=== PATIENT | male | born 1955 | race Caucasian/White ===

== ENCOUNTER 2019-12-01 11:55 | Inpatient (IN) ==
[2019-12-01] MEDS ORDERED: ATROPINE SULFATE PFS IVP PRN (12:09)
[2019-12-01] MEDS ORDERED: DEXTROSE 5%-1/2NS IV SOLUTION 1,000 ML IV STA (12:09)
[2019-12-01] MEDS ORDERED: TYLENOL PO PRN (12:09)
[2019-12-01] MEDS ORDERED: NITROSTAT SL PRN (12:09)
[2019-12-01] MEDS ORDERED: VISTARIL INJ IM PRN (12:09)
[2019-12-01] MEDS ORDERED: HUMULIN R 100 UNIT in SODIUM CHLORIDE 99 ML IV SCH (12:15)
[2019-12-01 12:28] VITALS: BMI 21.4
[2019-12-01 12:43] LABS: HEMATOCRIT 40.1 % (42.0-52.0)
[2019-12-01] MEDS ORDERED: DEXTROSE 5%-1/2NS IV SOLUTION 1,000 ML IV SCH (13:00)
[2019-12-01] MEDS ORDERED: HUMULIN R SUBCUT STA (13:47)
[2019-12-01] MEDS: D5%-1/2NS-KCL 40 MEQ/L IV SOL 1,000 ML IV SCH ×2 (14:00→22:04)
[2019-12-01] MEDS: ASPIRIN EC PO SCH (14:01)
[2019-12-01] MEDS: K-DUR PO SCH ×6 (14:01→23:51)
--- NOTE | 2019-12-01 14:51 | DI ---
EXAM: Chest two views HISTORY: Acute bronchitis FINDINGS: No comparison. Heart size is within normal limits. The less than optimal inspiration hanley its the exam. Cannot exclude mild/early pneumonia in the lower aspect of the right upper lobe. Ther e are a few nodular densities in the lateral left lung base which are indeterminate measuring approxi mately 15 mm largest. There is no vascular congestion, pneumothorax or pleural fluid. IMPRESSION: 1. Probable right upper lobe pneumonia. 2. Indeterminate nodular densities lateral left lung base for which follow-up full inspiration two-v iew chest radiography is recommended for clarification. CT correlation may be indicated at that time according to results.
[2019-12-01] MEDS: COZAAR PO SCH (16:49)
[2019-12-01] MEDS: ROCEPHIN 1 GM/50 ML D5W 1 GM/50 ML BAG IV SCH (16:49)
[2019-12-01] MEDS: ZITHROMAX PO SCH (16:50)
[2019-12-01] MEDS: HUMULIN R SUBCUT PRN ×4 (17:54→23:55)
[2019-12-02] MEDS: K-DUR PO SCH ×6 (01:55→12:02)
[2019-12-02] MEDS: HUMULIN R SUBCUT PRN ×3 (02:01→15:05)
[2019-12-02 05:26] LABS: HEMATOCRIT 35.3 % (42.0-52.0)
[2019-12-02] MEDS: D5%-1/2NS-KCL 40 MEQ/L IV SOL 1,000 ML IV SCH ×4 (05:30→14:56)
[2019-12-02] MEDS: ZITHROMAX PO SCH (09:29)
[2019-12-02] MEDS: COZAAR PO SCH (09:29)
[2019-12-02] MEDS: ASPIRIN EC PO SCH (09:30)
[2019-12-02] MEDS: ROCEPHIN 1 GM/50 ML D5W 1 GM/50 ML BAG IV SCH (09:30)
--- NOTE | 2019-12-02 09:35 | PCM.PROG ---
Attending Provider: ATTENDING PROVIDER: Dr. MAT DUMONT This patient is seen with Aylin Cassidy, Nurse Practitioner. DATE OF SERVICE: 12/02/19 SUBJECTIVE: This 64 year old /WHITE M was hospitalized 12/01/19. The patient is resting comfortably. He is hospitalized with uncontrolled diabetes, severe hypokalemia, hypertension and pneumonia. He is getting serial Accu-Checks with insulin coverage. Potassium is being replaced IV and orally. BP is being monitored. He is receiving Rocephin and Zithromax IV. REVIEW OF SYSTEMS: CONSTITUTIONAL: Weakness. No night sweats. No fatigue, malaise, lethargy. No fever or chills. HEENT: Eyes: No visual changes. No eye pain. No eye discharge. ENT: No runny nose. No epistaxis. No sinus pain. No odynophagia. No congestion. RESPIRATORY: Cough. No hemoptysis. No shortness of breath. CARDIOVASCULAR: No angina symptoms. No CHF symptoms. No atypical chest pain for CAD. No palpitations. No orthopnea.. GASTROINTESTINAL: No abdominal pain. No nausea or vomiting. No diarrhea or constipation. No hematemesis. No hematochezia. GENITOURINARY: Enlarged scrotum. No urgency. No frequency. No dysuria. No hematuria. No obstructive symptoms. No discharge. No pain. No significant abnormal bleeding. MUSCULOSKELETAL: No musculoskeletal pain; no joint swelling. NEUROLOGICAL: Awake, alert, oriented to time, place and person. No headache. No neck pain. No syncope. No seizures. No dizziness. PSYCHIATRIC: Not anxious. No depression. No suicidal thoughts. No homicidal thoughts. SKIN: No rash. No lesions. No wounds. ENDOCRINE: No unexplained weight loss. No weight gain. HEMATOLOGIC/LYMPHATIC: No anemia. No purpura. No petechiae. No prolonged or excessive bleeding. No palpable lymph nodes. PHYSICAL EXAMINATION: GENERAL: The patient is awake, alert and oriented, lying/sitting in bed in no distress. VITAL SIGNS: Temperature 98.4 F, Pulse 103, Respiratory Rate 18, BP 116/71, Pulse Ox 95% HEENT: Head normocephalic, atraumatic. Eyes: Extraocular muscles are intact. Pupils are equal, round and reactive to light and accommodation. Ears: No lesions. Nose appeared normal. Throat: No exudate or erythema. NECK: Supple. No JVD, no carotid bruit. No lymphadenopathy or thyromegaly. LUNGS: Clear to auscultation. Percussion note normal. Chest symmetrical. HEART: Slight tachycardia. S1, S2, no S3. No murmurs. No cyanosis or clubbing. No ascites. Pulses: Dorsalis pedis and posterior tibial pulses +1 to +2 both sides. ABDOMEN: Positive for scrotal edema. Soft. Non-tender. Bowel sounds active. No CVA tenderness. No mass felt. EXTREMITIES: No edema. Full range of motion of all extremities, equal. NEUROLOGIC: No focal deficit. Cranial nerves II through XII are grossly intact. No headache, no double vision or headache. SKIN: Warm and dry. Intact. Turgor-normal. LYMPHATIC: No palpable lymph nodes/no lymphedema. MUSCULOSKELETAL: Normal joints with no swelling. Muscle tone is normal. LAB REVIEW: 12/02/19 04:43 12/02/19 04:43 12/02/19 04:43: Sodium 132.8 L, Potassium 3.24 L, Chloride 102.5, Carbon Dioxide 22.6 D, Anion Gap 10.94, BUN 17.9, Creatinine 0.60, Estimated GFR (MDRD) 136.00, BUN/Creatinine Ratio 29.83, Glucose 131.8 H D, Calcium 8.46, Total Bilirubin 0.78, AST 15.2 L, ALT 9.1, Alkaline Phosphatase 114.6 D, Total Protein 5.54 L, Albumin 2.41 L, Globulin 3.13, Albumin/Globulin Ratio 0.76 12/02/19 04:43: WBC 31.20 H, RBC 4.58 L, Hgb 13.0 L, Hct 35.3 L, MCV 77.1 L, MCH 28.4, MCHC 36.8 H, RDW Coeff of Esperanza 13.2, Plt Count 341, Neutrophils % (Manual) 56.0, Band Neutrophils % 29.0 H, Lymphocytes % (Manual) 3.0 L, Monocytes % (Manual) 10.0, Eosinophils % (Manual) 0.0, Basophils % (Manual) 0.0, Metamyelocytes % 1.0, Myelocytes % 1.0, Anisocytosis Not present 12/01/19 20:31: Potassium 2.29 L*, Total Creatine Kinase 34.7 L, Troponin I < 0.012 12/01/19 16:35: Lactic Acid 1.50 12/01/19 14:30: Urine Color Yellow, Urine Clarity Clear, Urine pH 5.0, Ur Specific Myrtle 1.020, Urine Protein 1+ H, Urine Glucose (UA) 2+ H, Urine Ketones 4+, Urine Blood 3+ H, Urine Nitrite Negative, Urine Bilirubin Negative, Urine Urobilinogen 0.2, Ur Leukocyte Esterase Trace H, Urine Microscopic RBC 30- 50, Urine Microscopic WBC 2-5, Ur Squamous Epith Cells 5-10, Urine Bacteria Trace 12/01/19 12:39: Free T4 1.07 12/01/19 12:39: Sodium 127.7 L, Potassium 1.78 L*, Chloride 91.5 L, Carbon Dioxide 10.0 L, Anion Gap 27.98, BUN 17.5, Creatinine 0.77, Estimated GFR (MDRD) 102.00, BUN/Creatinine Ratio 22.72, Glucose 472.1 H, Calcium 8.83, Total Bilirubin 0.73, AST 19.9, ALT 11.4, Alkaline Phosphatase 178.3 H, Total Creatine Kinase < 20.0 L, Troponin I < 0.012, Total Protein 6.60, Albumin 3.05 L, Globulin 3.55, Albumin/Globulin Ratio 0.85, TSH 1.010 12/01/19 12:39: WBC 35.98 H, RBC 5.12, Hgb 14.4, Hct 40.1 L, MCV 78.3 L, MCH 28.1, MCHC 35.9 H, RDW Coeff of Esperanza 13.6, Plt Count 357, Immature Gran % (Auto) 2.9, Neut % (Auto) 87.6 H, Lymph % (Auto) 2.1 L, Coffee % (Auto) 7.1, Eos % (Auto) 0.0, Baso % (Auto) 0.3, Immature Gran # (Auto) 1.0, Neut # (Auto) 31.5 H, Lymph # (Auto) 0.8, Coffee # (Auto) 2.6 H, Eos # (Auto) 0.0, Baso # (Auto) 0.1 12/01/19 12:34: Procalcitonin 0.70 12/01/19 12:09: Puncture Site Rb, O2 Saturation 98.0, ABG pH 7.396, ABG pCO2 16.0 L, ABG pO2 102.0 H, ABG HCO3 9.8 L, ABG Total CO2 10 L, ABG Base Excess -15 L, FiO2 % 21.0 ASSESSMENT: Please see below. 1. Uncontrolled diabetes type 2 2. Severe hypokalemia 3. Hypertension 4. Pneumonia PLAN: 1. Continue potassium q.4hr. 2. PSA. 3. Elevate scrotum. 4. CT chest without contrast. 5. CT scan of abdomen without contrast. 6. Serum cortisol level tomorrow a.m. 7. Accu-Checks q.4hr. 8. A1C. 9. Lantus 50 units @ suppertime daily. 10. Continue antibiotics through the weekend. Plan and coordination of the patient's care discussed in the presence of Swimming Pool Maintenance and nurse. CONDITION: Guarded. SCRIBED BY: GONZALEZ WHITFIELD Cheese Blender scribed while in presence of service performed by Dr. Dumont/Aylin Cassidy APRN on 12/02/19 ([id number])
--- NOTE | 2019-12-02 10:28 | HP ---
DATE OF SERVICE: 12/01/19 REASON FOR REFERRAL: "Needs M.D." CHIEF COMPLAINT/HISTORY OF PRESENT ILLNESS: This 64-year-old male presented to the office with complaints of weakness, sick times three weeks, fatigue, no appetite with weight loss. He complains of constipation. No diarrhea. No vomiting. He has right inguinal hernia PAST MEDICAL HISTORY: None - has been healthy. PAST SURGICAL HISTORY: None. COLONOSCOPY: Never had one. REVIEW OF SYSTEMS: CONSTITUTIONAL: Weakness and fatigue. No fever. HEENT: Eyes are dry. Blurred vision. No double vision. No sinus drainage, no sore throat. RESPIRATORY: Cough/wheezing with yellow sputum. CARDIOVASCULAR: No atypical chest pain for coronary artery disease. No angina, CHF symptoms, palpitations or shortness of breath. GASTROINTESTINAL: Appetite is okay. No vomiting. No melena or abdominal pain. No GERD. GENITOURINARY: No hematuria, no prostatism, no polyuria. READING INSTRUCTOR: Positive for dizziness. No blackout, no headache, no double vision. MUSCULOSKELETAL: No osteoarthritis pain, no joint swelling. ENDOCRINE: Weight loss of greater than 30 lbs. SKIN: Dry skin. No rash. PSYCHIATRIC: Not anxious, no depression, no suicidal thoughts, no homicidal thoughts. SOCIAL HISTORY: Marital Status: . No children. Occupation: Retired. No drug use. Nonsmoker. No alcohol use. FAMILY HISTORY: Father is . Brother: Half brother. Sister: Half sister. MEDICATIONS: NONE ALLERGIES: NKDA PHYSICAL EXAMINATION: V/S: BP 170/84 right, 170/80 left, pulse 112, respirations 24, temperature 97.5, 02 sat 98%. Height 6'1", weight 165.6, BMI 23.1. GENERAL APPEARANCE: Dry skin, sunken eyes. HEENT: Normal. Ears, nose, mouth and throat (inspection of teeth, gums, palate or oral mucosa with notation or presence of pallor or cyanosis): Pallor positive. NECK: No JVP, no bruits. RESPIRATORY: Lungs are clear to auscultation. CARDIOVASCULAR: S1, S2, no S3, no murmur. No cyanosis, clubbing. No ascites. Examination of carotid arteries, abdominal aorta, femoral arteries and pedal pulses +2 bilaterally. GI/ABDOMEN: No masses or tenderness. Liver and spleen normal. Bowel sounds are active. MUSCULOSKELETAL: Back - normal. no notation of kyphosis or scoliosis. Examination of gait with notation of ability to undergo exercise testing. Unsteady. Normal muscle tone and strength. EXTREMITIES: Dry skin. NEUROLOGIC/PSYCHIATRIC: Brief assessment of mental status including orientation to time, place and person, mood and effect (eg: depression, anxiety, agitation) Normal. LYMPHATIC: Normal. LABS: Hgb 14.4, hct 40, WBC 35,000, Sodium 127, potassium 1.78, creatinine 0.7, BUN 17, Glucose 472, Alkaline phosphatase 178, T4 normal. ABG pO2 102, pCO2 16, pH 7.39 with HCO3 9.8 with base excess -15. Oxygen saturation 98%. The patient's U/A showed possibility of UTI. Chest x-ray showed possibility of right upper lobe pneumonia and left lung base nodule. ASSESSMENT: 1. UNCONTROLLED DIABETES MELLITUS - RULE OUT KETOACIDOSIS. 2. WEIGHT LOSS FROM UNCONTROLLED DIABETES MELLITUS 3. ACUTE BRONCHITIS 4. HYPERTENSION 5. DYSLIPIDEMIA 6. SEVERE DEHYDRATION PLAN: 1. Admit - Special Care Unit. 2. Routine telemetry orders. 3. 1000 cc D5 1/2 NS q.4hourly BRENDAN. 4. ABG STAT. 5. U/A. 6. TSH/T4. 7. Sputum for culture and sensitivity. 8. Insulin drip with 5 units/hr. 9. Monitor glucose hourly. 10.Start Rocephin and Zithromax 11.CT scan of the chest done in the morning. 12.40meq KCL ever 2 hours 7 doses along with 40meq KCL in 1000cc D5 half normal saline running every 6 hourly. The patient has been explained about all these findings. CONDITION: Stable. TIME SPENT: More than 70 minutes. MTDD
--- NOTE | 2019-12-02 10:33 | CT ---
EXAM: CT chest without contrast HISTORY: Cough COMPARISON: 12/01/2019 TECHNIQUE: Multiple axial images of the chest were obtained without contrast. Images were reformatte d in the sagittal and coronal planes. FINDINGS: Normal appearance of the thoracic inlet. Coarse right thyroid calcification. Normal heart size. No pericardial effusion. Coronary artery atherosclerosis. Lack of IV contrast limits evaluation for a denopathy. No enlarged axillary or mediastinal lymph nodes . Unremarkable esophagus. Patent centra l airways. Innumerable multifocal bilateral nodular areas of consolidation with central necrosis ashok suring up to approximately 1.7 cm in the right upper lobe and 3.1 cm in the left lower lobe. Right r ight upper lobe perifissural mass-like consolidation measures approximately 5.1 x 3.2 cm. No pneumoth orax or pleural effusion. No acute findings within the visualized upper abdomen. No suspicious blastic/lytic lesion. No acute o sseous abnormality. IMPRESSION: 1. Numerous bilateral cavitary pulmonary nodules/masses measuring up to 3.1 cm in the left lower lob e. Primary diagnostic considerations include cavitary metastases/malignancy and septic pulmonary emb alicia. 2. Right upper lobe consolidation, which may represent pneumonia and/or malignancy. 3. Coronary atherosclerosis.
--- NOTE | 2019-12-02 11:08 | CT ---
EXAM: CT Abdomen Pelvis Without contrast HISTORY: Constipation, scrotal swelling, low protein COMPARISON: None TECHNIQUE: CT of the Abdomen Pelvis was performed Without contrast. Coronal and sagital reformats we re obtained. FINDINGS: Please refer to same day/time CT of the chest for details of the thorax. Incidental note of multiple cavitary nodules in the bilateral lung bases. The liver, spleen, pancreas and left adrenal gland are unremarkable. Indeterminate nodular thickenin g of the left adrenal gland measuring up to 2.4 cm in thickness. No nephrolithiasis or hydronephrosi s. Nonspecific symmetric mild bilateral perinephric fat stranding. Marked distension of the urinary bladder. Approximately 50% of the bladder is herniated into a large right inguinal hernia extending to the scrotum. Small/moderate hiatal hernia. No bowel obstruction or abnormal bowel wall thickening. Mild divertic ulosis without diverticulitis.. Moderate colonic stool volume. Normal appendix. No adenopathy. Normal diameter aorta. Scattered mild atherosclerotic calcifications. No abnormal fluid collection, free fluid or free air. No suspicious lytic/blastic lesion. No acute osseous abnormality. IMPRESSION: 1. No urinary or bowel obstruction. Moderate colonic stool volume. 2. Indeterminate 2.4 cm right adrenal nodule. Considerations include both benign and malignant etio logies. 3. Nonspecific symmetric mild bilateral perinephric fat stranding. 4. Very large right inguinal hernia containing mesenteric fat and approximately 50% of the bladder w hich extends to the scrotum. 5. Small/moderate hiatal hernia
[2019-12-02 14:17] VITALS: BP 160/92; TEMP 97.5
[2019-12-02] MEDS ORDERED: COREG PO SCH (14:30)
[2019-12-02] MEDS ORDERED: D5%-1/2NS-KCL 40 MEQ/L IV SOL 1,000 ML IV SCH (14:31)
--- NOTE | 2019-12-02 14:35 | DS ---
DATE OF SERVICE: 12/02/19 FINAL DIAGNOSIS: 1. UNCONTROLLED DIABETES MELLITUS PROBABLY BORDERLINE KETOACIDOSIS 2. SEVERE HYPOKALEMIA WITH POTASSIUM OF 1.78 3. RIGHT UPPER LOBE CONSOLIDATION WITH POSSIBILITY OF PNEUMONIA VS MALIGNANCY 4. MULTIFOCAL BILATERAL NODULAR AREAS OF CONSOLIDATION WITH CENTRAL NECROSIS BY CT SCAN. 5. HYPERTENSION. 6. BORDERLINE CARDIOMYOPATHY. 7. LARGE RIGHT INGUINAL HERNIA DISCHARGE INSTRUCTIONS: Transferring the patient to [facility]. LABS AND X-RAY FINDINGS ON ADMISSION: WBC count 35,000 on admission, today it was 31,000. Hemoglobin 14, hematocrit 40. The patient has shift to the left. ABG on admission pH 7.39 with pc02 16 with p02 of 102 with HC03 9.8 with minus 15 base excess. UA showed 1+ protein, 2+ glucose, 4+ ketones. Blood in the urine was 3+, trace leukocyte esterase and trace bacteria. Procalcitonin 0.7 (normal is less than .05). T4, TSH normal. Lactic acid normal. Creatinine 0.6, BUN 17, ALT/AST normal. Chest x-ray right upper lobe pneumonia. CT scan of the chest done today showed right upper lobe consolidation, numerous bilateral cavitary pulmonary nodules and masses measuring up to 3.1 cm. Coronary atherosclerosis was noted. CT of the abdomen showed 2.4 cm size right adrenal nodule, very large right inguinal hernia containing mesentary fat, 50% of urinary bladder. HOSPITAL COURSE: 64-year-old white male was seen for the first time in the office after 20 years as patient has been unable to walk. He has to walk with the help of family members. He looked extremely malnourished, pale. Blood sugar in the office was approximately 500. The patient was hospitalized and noted to have severe hypokalemia with potassium of 1.78. The patient was given 40 mEq KCL p.o. every 2 hours for 12 doses along with IV 40 mEq every 6 hourly, 1000 cc D5 1/2 Normal Saline. The patient was started on insulin initially with drip but later on switched to 4 hour Accu-Check with sliding scale coverage. The patient has been put on 50 units of Lantus at bedtime. Education for diabetes has been started. The patient was also started on Rocephin and Zithromax considering the patient's chest x-ray report on admission but the patient's CT scan of the chest showed possibility of multiple nodules which could be intracavitary metastases or septic emboli. Considering the patient's overall health status with weight loss of more than 15 lbs in the past three weeks, WBC count of 31,000, multiple other comorbid conditions, it was decided to transfer the patient to [facility] to Pulmonary/Infectious Speciality available along with other specialities that could be required. This was discussed with the and the patient. They are agreeable. The patient had an echocardiogram done which didn't have any echogenic area consistent with infectious endocarditis. The patient has borderline enlarged LV cavity with ejection fraction 45 to 50%, LA cavity is enlarged. The patient has been started on Cozaar 100 mg p.o. daily with Coreg of 3.125 twice a day. MEDICATIONS AT TIME OF TRANSFER: Rocephin 1 gm q.24 Zithromax 500 mg p.o. daily Cozaar 100 mg daily Coreg 3.125 p.o. twice a day Lantus 50 units subcu at supper to be started today Accu-Checks with sliding scale coverage IV fluids 8 hourly with 20 mEq KCL K-Tab 20 mEq p.o. t.i.d. Blood gases today showed pH 7.38 with p02 of 68, pc02 of 24, saturation 94% on room air. Base excess of minus 11. CONDITION AT TIME OF DISCHARGE: Stable. TIME SPENT: More than 60 minutes. MTDD
[2019-12-02] MEDS ORDERED: K-DUR PO SCH (15:00)
[2019-12-02] MEDS ORDERED: LANTUS SUBCUT SCH (17:00)
--- NOTE | 2019-12-05 11:34 | PN ---
DATE OF SERVICE: 12/02/2019 DISCHARGE NOTE SUBJECTIVE: 64 year old white male hospitalized with uncontrolled diabetes mellitus. The patient had metabolic acidosis on admission which seems to be improved with repeated gasses done today. He is feeling better. Over all he looks better with normal hydration status. Still has not good appetite even though it has improved and the weakness persists. REVIEW OF SYSTEMS: CONSTITUTIONAL: No night sweats. No fatigue, malaise, lethargy. No fever or chills. HEENT: Eyes: No visual changes. No eye pain. No eye discharge. ENT: No runny nose. No epistaxis. No sinus pain. No sore throat. No odynophagia. No congestion. RESPIRATORY: No cough, no congestion. No hemoptysis. No shortness of breath. CARDIOVASCULAR: No angina symptoms. No CHF symptoms. No atypical chest pain for CAD. No palpitations. No PND. No orthopnea. GASTROINTESTINAL: No abdominal pain. No nausea or vomiting. No diarrhea or constipation. No hematemesis. No hematochezia. GENITOURINARY: No urgency. No frequency. No dysuria. No hematuria. No obstructive symptoms. No discharge. No pain. No significant abnormal bleeding. MUSCULOSKELETAL: No musculoskeletal pain; no joint swelling. NEUROLOGICAL: No headache. No neck pain. No syncope. No seizures. No dizziness. PSYCHIATRIC: Not anxious. No depression. No suicidal thoughts. No homicidal thoughts. SKIN: No rash. No lesions. No wounds. ENDOCRINE: No unexplained weight loss. No weight gain. HEMATOLOGIC/LYMPHATIC: No anemia. No purpura. No petechiae. No prolonged or excessive bleeding. No palpable lymph nodes. PHYSICAL EXAMINATION: VITAL SIGNS: Temperature 98.4, pulse 100, respiratory rate 18, blood pressure 116/71 and pulse ox 95% HEENT: Head normocephalic, atraumatic. Eyes: Extraocular muscles are intact. Pupils are equal, round and reactive to light and accommodation. Ears: No lesions. Nose appeared normal. Throat: No exudate or erythema. NECK: Supple. No JVD, no carotid bruit. No lymphadenopathy or thyromegaly. LUNGS: Decreased breath sounds with mild wheeze. Percussion note normal. Chest symmetrical. HEART: S1, S2, no S3. No murmurs. No cyanosis or clubbing. No ascites. Pulses: Dorsalis pedis and posterior tibial pulses +1 to +2 bilaterally. ABDOMEN: Soft. Nontender. Bowel sounds active. No CVA tenderness. No mass felt. EXTREMITIES: No edema. Full range of motion of all extremities, equal. NEUROLOGIC: No focal deficit. Cranial nerves II through XII are grossly intact. No headache, no double vision or headache. SKIN: Not dry. Intact. Turgor - normal. LYMPHATIC: No palpable lymph nodes/no lymphedema. MUSCULOSKELETAL: Normal joints with no swelling. Muscle tone is normal. LABS: Hgb 13, hct 35, WBC 31,000 normal differential, creatinine 0.6, BUN 17, potassium 3.2. Glucose 131. T4 TSH normal. ASSESSMENT: 1. Uncontrolled diabetes mellitus on sliding scale. The patient is going to be started on Lantus 50 units daily. Diabetic teaching started. 2. Severe hypokalemia seems to have improved. Potassium was 1.78 now it is 3.2. He was given 40meq KCL every 2 hours, 10 doses or more. 3. Hypertension, the patient is on Cozaar. Coreg will be added 4. Pneumonia been treated with Rocephin and Zithromax. The patient had CT scan of the chest done which showed multiple nodules with cavitary type lesion with necrosis. Raising the possibility of septic emboli 5. Metastatic lung disease The patient's case discussed with the family. The patient is going to be transferred because he is going to need pulmonary/infectious disease care. TIME SPENT: More than 2 hours face to face and with discharge summary and discharge planning. Plan and coordination of the patient's care discussed in the presence of nurse. NILES
--- NOTE | 2019-12-05 11:50 | PN ---
12/01/2019: Level 5 12/02/2019: Extensive MTDD
--- NOTE | 2019-12-05 13:07 | PN ---
DATE OF SERVICE: 12/01/2019 SUBJECTIVE: The patient after hospitalization for severe hypokalemia. The patient's potassium was 1.78. He was given 40meq KCL every 2 hours with a total of 10 doses. The patient is going to monitored for possibility of any arrhythmias arising from hypokalemia. TIME SPENT: More than 30 minutes. Plan and coordination of the patient's care discussed in the presence of nurse. NILES
--- NOTE | 2019-12-05 13:20 | ECHO2D ---
Date of Exam: 12/02/19 Ordering Physician: DR. MAT DUMONT Room #: SCU1 Reason for Echo: SOB, DM2, HTN, SEPTIC EMBOLI/ RULE OUT ENDOCARDITIS M-Mode Normal Adult Results LV Dimensions Normal Adult Results AoV Opening excursions >1.6 >1.6 LVEDD-base- 3.5-5.8 5.5 Ao root dimensions 2.0-3.7 3.5 LVESD-base- 3.1-4.6 L. Atrium dimensions 1.9-3.8 4.6 Post. Wall thickness 0.8-1.1 1.0 IV septum (thickness) 0.7-1.2 1.1 Post. Wall excursion 0.72-1.3 0.8 Septal motion 0.8 Systolic motion R. Ventricular cavity 1.5-2.0 NORMAL LVEF 60% 45% Paradoxical septal wall motion NORMAL 2-D : 2-D M Mode Echocardiogram was performed using apical four chamber and left parasternal long and short axis views. Mitral, tricuspid and aortic valves appear to be normal. HYPOKINETIC LEFT VENTRICLE. ENLARGED LEFT ATRIAL CAVITY SIZE. Aortic roots appear to be normal. There is no pericardial effusion. There is no thrombus noted in the left ventricle or left atrial cavity. No mitral valve prolapse noted. M-MODE: MV: NORMAL AV: NORMAL TV: NORMAL PV: CHAMBER SIZE: ENLARGED LEFT ATRIAL CAVITY WALL MOTION: HYPOKINETIC LEFT VENTRICLE PERICARDIUM: NORMAL INTERPRETATION: 1. HYPOKINETIC LEFT VENTRICLE WITH EJECTION FRACTION 45% 2. ENLARGED LEFT ATRIAL CAVITY 3. NORMAL VALVES MTDD
== END 2019-12-02 16:40 | disposition short-term general hospital (02) | DRG 637 ==
LOC: SCU 11:55 → EDSTATUS 12-02 11:21
PROVIDERS: ADMIT Internal Medicine; ATTEND Internal Medicine